=== PATIENT | female | born 1950 | race Caucasian/White ===

== ENCOUNTER 2017-11-12 12:00 | Outpatient (RCR) | payer MEDICARE, OTHER, SELFPAY ==
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
--- NOTE | 2017-11-08 13:41 | HP.PTREVAL_ITS ---
Out of Town Doctor, FRANCOISE ARAUJO It has been my pleasure to treat SEN PATHAK over the last 5 visits for LUMBAR INTERVERTEBRAL DISC DEGENERATION. Please see the progress note below for an update on the physical therapy plan of care! Subjective: PATIENT REPORTS SHE DOESN'T HAVE THE GRABBING PAIN ALL THE WAY DOWN THE RIGHT LEG TO THE TOES ANYMORE LIKE SHE HAD BEFORE. SHE REPORTS THAT THE EX SESSIONS HAVE BEEN CHALLENGING BUT HELPFUL. NO INCREASED PAIN WITH THE EX'S LAST SESSION REPORTED. PATIENT REPORTS SHE SAW THE BACK SURGEON AND HE SAID EVERYTHING LOOKS GOOD BUT HER BACK X-RAY SHOWS SHE IS STILL HEALING. STATES SHE DOESN'T HAVE TO WEAR THE BRACE ANYMORE UNLESS SHE FEELS LIKE SHE WANTS OR NEEDS TO. SHE IS WEARING THE BRACE TO DO HER HAIR AND DOING DISHES. SHE STATES THE LUMBAR CUSHION SHE GO HELPS A LOT. PATIENT REPORTS SHE IS STILL SUPPOSE TO AVOID BENDING, LIFITNG AND TWISITING. MAX LIFTING IS 10 LBS. FOLLOW UP SCHEDULED DEC 16 2017. PATIENT REPORTS THE DOCTOR DECREASED HER PAIN MEDICATION ADN SHE WAS REALLY TICKED OFF BECAUSE SHE HAS NECK PROBLEMS AND FIBROMYALGIA. Objective/Function: INDEP GAIT INTO PT WITHOUT BACK BRACE OR AD. Motor deficit : ALMA LE STRENGTH GROSSLY 5/5 WITH MMT EXCEPT ALMA HIPS 4-/5. Sensory deficit: ALMA LE LIGHT TOUCH SENSATION INTACT AND SYMMETRICAL. ROM deficit: TIGHT ALMA HS'S AND GASTROC SOLEUS COMPLEX'S. Reflexes: 2/2 ALMA LE'S. Lumbar mvmt loss: NT. Core strength: POOR. Palpation: INCISION LOOKS GOOD WITHOUT ANY SIGNS OF INFECTION. GOOD PROGRESS TOWARD ALL GOALS. PATIENT REQUIRED A LOT OF CUEING FOR GOOD HEP TECHNIQUE BUT GOOD RETURN DEMO AT CONCLUSION. Plan Plan: GIVE WRITTEN HEP IF NEEDED. *NO HEAVY LIFTING AND NO REPETATIVE BENDING OR TWISTING*. POSTURE CORRECTION/STRENGTHENING, INSTRUCTION IN APPROPRIATE BODY MECHANICS AND ACTIVITY MODIFICATIONS. DLS STARTING WITH A NEUTRAL SPINE PROGRESSING ROM WHEN OKAY'D BY SURGEON. ALMA LE ROM, STRETCHING AND STRENGTHENING. HEP INSTRUCTION. Goals Goal 1:: DECREASE C/O BACK PAIN Goal Time Frame: 4-6 Weeks Goal Progress: Progressing Goal 2:: IMPROVE PERSONAL CARE, LIFITNG, WALKING, SITTING, STANDING, SLEEP, SOCIAL LIFE, TRAVELING, AND HOMEMAKING FUNCTION. Goal Time Frame: 4-6 Weeks Goal Progress: Progressing Goal 3:: INSTRUCT IN PROPHYLAXIS Goal Time Frame: 4-6 Weeks Goal Progress: Progressing Anticipated Interventions Patient/Client Instruction: Educate patient on: Condition, Plan of Care, Risk Factors, Benefits of Fitness Program For the Purpose of:: To improve self management Therapeutic Exercise to Include: Strength training, Body mechanics, Postural training, Flexibilty training, Dynamic Lumbar Stabilization For the Purpose of:: To improve ability of physical actions for home/community/ work/leisure Cryotherapy (ice pack, ice massage): Yes Thermo therapy (hot pack): Yes For the Purpose of:: To decrease pain, To decrease swelling/inflammation Please do not hesitate to contact me at [phone] by phone or Fax: if you have questions or concerns regarding this new plan of care! Sincerely, Nat Romano
--- NOTE | 2018-03-18 16:54 | HP.PTDCNRP_ITS ---
HP - Discharge Summary (1) - Patient Information SEN PATHAK was seen in my office for initial evaluation on 10/20/17. The following Plan of Care was established for this patient: Initial Frequency: 2-3x /Week Initial Duration: 4-6 Weeks - Anticipated Interventions Patient/Client Instruction: Educate patient on: Condition, Plan of Care, Risk Factors, Benefits of Fitness Program For the Purpose of:: To improve self management Therapeutic Exercise to Include: Strength training, Body mechanics, Postural training, Flexibilty training, Dynamic Lumbar Stabilization For the Purpose of:: To improve ability of physical actions for home/community/ work/leisure Cryotherapy (ice pack, ice massage): Yes Thermo therapy (hot pack): Yes For the Purpose of:: To decrease pain, To decrease swelling/inflammation This patient was last seen in our office . Pertinent comments regarding their Physical therapy will appear below: This patient has not returned to Physical Therapy and is appropriate to return to MD for further follow-up as needed. At this point I will be discontinuing this patient from physical therapy. I would be happy to see this patient again in the future if found appropriate by the physician. Thank you! Nat Romano
== END 2017-11-12 19:00 | disposition home or self-care (01) ==
LOC: PT 12:00
DX: M51.36 Other intervertebral disc degeneration, lumbar region (principal)
CPT/HCPCS: 97110; 97162; 97530; G8978; G8979

== ENCOUNTER 2018-06-24 12:00 | Outpatient (RCR) | payer MEDICARE, OTHER, SELFPAY ==
--- NOTE | 2018-05-26 18:51 | HP.PTEVAL_ITS ---
Patient's Visit Information SEN PATHAK is a 67 year old F referred to Physical Therapy by FRANCOISE ANDREWS with a diagnosis of LB and R hip pain. Date of Evaluation: 05/26/18 Physical Therapist: Jerel He, PT, - Visit Plan Frequency: 2-3x /Week Duration: 4 Weeks Plan: Core strengthening, B LE strengthening, nustep, postural awareness, and HEP. US to R hip to decrease pain - Subjective Subjective: DOS: 09/22/17. Pt had a fusion performed in her L/S at that time secondary to a chronic Hx of LBP. Pt reports she came to PT at that time to strengthenin her LB, but developed R hip bursitis and was unable to continue with her PT. Pt reports she is back now to get her LB stronger. Pt reports no R LE radiculopathy since having the surgery. Pt notes she has diff sleeping without the use of her perscribed pain pill. Pt notes she has Diff with prolonged ambulation and shopping at this time. Pt also notes going up stairs is very diff at this time secondary to pain. 5/10 at rest, 9/10 at worst. - Pain LBP Pain Intensity (Out of 10): 5 Pain Intensity Range: 9 - Objective LE MMT: R LE is grossly 4-/5 throughout while L LE is 4/5 throughout. L/S ROM: Pt is moderately limited with flex, minimally limited with all other ranges. Neuro: B LE sensation is WNL to light touch. B patellar tendon reflex= 3/3. Gait: Pt was able to ambulate 1360' without being limited by pain. Pt does display a mild trendelenburg gait pattern indicating core weakness at this time. - Goals Goal 1:: Decrease LBP x 50% to aid with sleep Goal Time Frame: 4-6 Weeks Goal 2:: Decrease R hip pain x 50% to aid with ambulation Goal Time Frame: 4-6 Weeks Goal 3:: Increase core strength x 1 grade to aid with decreasing LBP Goal Time Frame: 4-6 Weeks Goal 4:: Increase B LE strength x 1 grade to aid with stair negotiation Goal Time Frame: 4-6 Weeks Goal 5:: I with HEP Goal Time Frame: 4-6 Weeks - Rehabilitation Potential Physical Therapy Diagnosis: Pt has LBP secondary to deg changes and being s/p L/ S fusion. Pt has R hip pain secondary to greater trochanteric bursitis. Rehabilitation Potential: Good - Anticipated Interventions Patient/Client Instruction: Educate patient on: Condition, Plan of Care For the Purpose of:: To improve self management Therapeutic Exercise to Include: Strength training, Endurance training, Postural training, Flexibilty training, Dynamic Lumbar Stabilization For the Purpose of:: To decrease pain, To increase ROM, To improve muscle performance and motor function Cryotherapy (ice pack, ice massage): Yes Thermo therapy (hot pack): Yes Ultrasound (thermal/non thermal): Yes For the Purpose of:: To decrease pain Thank you for the opportunity to evaluate your patient. For Medicare and Medicare HMO plans, please review the plan of care and approve it. It will need to be FAXED BACK to us at [phone] for Medicare purposes. Please let me know if there are questions or concerns regarding this plan of care. Physician Signature: Date:
--- NOTE | 2018-06-24 12:36 | HP.PTDCSUM ---
HP - PT D/C Summary It has been my pleasure to treat SEN PATHAK under orders from FRANCOISE ANDREWS, for the diagnosis of LB and R hip pain for a total of 11 visit(s). Discharge Date: Please see the following information for a summary of their discharge status. - Subjective Subjective: Pain is not that bad today. - Pain LBP Pain Intensity (Out of 10): 2 R hip Pain Intensity (Out of 10): 0 - Overall Improvement % Improvement: 85 - Objective Objective/Function: LBP and R hip pain are now 2/10. B LE strength is 5/5 throughout. No sleep diff at this time secondary to LBP. Pt can negotiate stairs without difficulty. Pt is I with HEP. Rx goals achieved - Goals Goal 1:: Decrease LBP x 50% to aid with sleep Goal Progress: Goal Met Goal 2:: Decrease R hip pain x 50% to aid with ambulation Goal Progress: Goal Met Goal 3:: Increase core strength x 1 grade to aid with decreasing LBP Goal Progress: Goal Met Goal 4:: Increase B LE strength x 1 grade to aid with stair negotiation Goal Progress: Goal Met Goal 5:: I with HEP Goal Progress: Goal Met - Plan Plan: Discharge - D/C Information If there are questions or concerns regarding this patient's physical therapy, please feel free to call me at [phone]. Thank you for the referral of this patient. Sincerely, Jerel He, PT,
== END 2018-06-24 19:00 | disposition home or self-care (01) ==
LOC: PT 12:00
DX: M51.36 Other intervertebral disc degeneration, lumbar region (principal); M70.61 Trochanteric bursitis, right hip; M25.551 Pain in right hip
CPT/HCPCS: 97035; 97110; 97162; 97530

== ENCOUNTER 2019-02-15 10:45 | Outpatient (RCR) | payer MEDICARE, OTHER, SELFPAY ==
[2019-01-26 11:51] VITALS: BP 149/82; PULSE 73; RESP 16; TEMP 35.8; BMI 30.6
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
[2019-02-01 11:11] VITALS: BP 154/78; PULSE 64; RESP 18; TEMP 33.4; BMI 30.6
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
[2019-02-03 13:55] VITALS: BP 139/63; PULSE 78; RESP 18; TEMP 36.2; BMI 30.6
--- NOTE | 2019-02-03 13:58 | WC ---
education on application of wet to dry dressing and removal of adhesive tape
[2019-02-08 10:22] VITALS: BP 148/83; PULSE 65; RESP 16; TEMP 36.6; BMI 30.6
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
[2019-02-15 11:26] VITALS: BP 157/74; PULSE 58; RESP 18; TEMP 36.9; BMI 30.6
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
== END 2019-02-19 23:59 ==
LOC: WC 10:45
PROVIDERS: Visit Provider Internal Medicine
DX: T21.22XA Burn of second degree of abdominal wall, initial encounter (principal); X19.XXXA Contact with other heat and hot substances, initial encounter; S31.109A Unspecified open wound of abdominal wall, unspecified quadrant without penetration into peritoneal cavity, initial encounter; T79.8XXA Other early complications of trauma, initial encounter
CPT/HCPCS: 11042; 87070; 87075; 87077; 87186; 87205; 99212; 99213; G0463

== ENCOUNTER 2019-03-15 10:30 | Outpatient (RCR) | payer MEDICARE, OTHER, SELFPAY ==
[2019-02-20 01:29] VITALS: BP 157/74; PULSE 58; RESP 18; TEMP 36.9
[2019-02-22 11:13] VITALS: BP 144/87; PULSE 59; RESP 18; TEMP 35.9; BMI 30.6
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
[2019-03-01 11:02] VITALS: BP 135/78; PULSE 60; RESP 16; TEMP 36.4; BMI 30.6
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
[2019-03-08 10:47] VITALS: BP 146/78; PULSE 61; RESP 16; TEMP 35.8; BMI 30.6
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
[2019-03-15 11:16] VITALS: BP 153/88; PULSE 56; RESP 18; TEMP 35.8; BMI 30.6
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
== END 2019-03-21 23:59 ==
LOC: WC 10:30
PROVIDERS: Visit Provider Internal Medicine
DX: T21.22XA Burn of second degree of abdominal wall, initial encounter (principal); X19.XXXA Contact with other heat and hot substances, initial encounter; S31.109A Unspecified open wound of abdominal wall, unspecified quadrant without penetration into peritoneal cavity, initial encounter; T79.8XXA Other early complications of trauma, initial encounter
CPT/HCPCS: 11042

== ENCOUNTER 2019-03-29 10:30 | Outpatient (RCR) | payer MEDICARE, OTHER, SELFPAY ==
[2019-03-22 01:28] VITALS: BP 153/88; PULSE 56; RESP 18; TEMP 35.8
[2019-03-22 10:52] VITALS: BP 136/76; PULSE 65; RESP 18; TEMP 36.1; BMI 30.6
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
[2019-03-29 11:39] VITALS: BP 143/79; PULSE 60; RESP 18; TEMP 36.1; BMI 30.6
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
== END 2019-04-21 23:59 ==
LOC: WC 10:30
PROVIDERS: Visit Provider Internal Medicine
DX: T21.22XA Burn of second degree of abdominal wall, initial encounter (principal); X19.XXXA Contact with other heat and hot substances, initial encounter; S31.109A Unspecified open wound of abdominal wall, unspecified quadrant without penetration into peritoneal cavity, initial encounter; T79.8XXA Other early complications of trauma, initial encounter
CPT/HCPCS: 11042; 99213; G0463

== ENCOUNTER → 2021-02-15 08:41 | Outpatient (CLI) | payer MEDICARE, OTHER, SELFPAY ==
--- NOTE | 2021-02-15 09:00 | MRI_ITS ---
STUDY: MRI RIGHT ANKLE WITHOUT CONTRAST REASON FOR EXAM: Female, 70 years old. ANKLE PAIN TECHNIQUE: Standardized fat and water weighted pulse sequences were obtained in all 3 orthogonal planes. COMPARISON: None. FINDINGS: There is bony degenerative change seen in association with the os trigonum, refer to image #11 series 7. There is prominent fluid surrounding the os trigonum and this is concerning for underlying impingement Normal posterior tibialis tendon. Normal flexor digitorum longus tendon. Normal flexor hallucis longus tendon. Normal peroneus longus and brevis tendons. Normal tibialis anterior tendon. Normal extensor hallucis longus tendon. Normal extensor digitorum longus tendons. Normal Achilles tendon and teno-osseous insertion. Normal plantar fascia. Normal plantar calcaneal tubercles. Normal intrinsic muscles of the rearfoot. Normal Lisfranc ligament. Normal distal tibiofibular syndesmotic ligamentous complex. Normal lateral ligamentous complex. There is infiltration and edema seen in association with the sinus tarsi, for instance refer to image #11 series 8. There is ganglion in this region and this extends dorsally such that it protrudes between the dorsal head of the talus and navicula. In addition there appears erosion of the undersurface of the talus at the sinus tarsi, refer to image #13 series 7. Consider potential underlying sinus tarsi syndrome. Normal deltoid ligamentous complexes. Normal plantar calcaneonavicular (spring) ligament. Normal tibiotalar articulation. Normal talar dome. Normal subtalar articulations. Normal talonavicular articulation. Normal calcaneocuboid articulation. Normal navicular-cuneiform articulations. 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 This infiltration includes complex ganglion that protrudes dorsally interposed between the talus and the navicular. * Degenerative changes seen in association with the os trigonum with subjacent fluid, consider posterior impingement. Electronically Signed: Porsche Vaughn MD at 10:23 EDT , Service support ,
== END ==
PROVIDERS: PCP Family Medicine; Referring Provider Podiatrist; Visit Provider Podiatrist
DX: M25.579 Pain in unspecified ankle and joints of unspecified foot (principal); M21.41 Flat foot [pes planus] (acquired), right foot
CPT/HCPCS: 73721